=== PATIENT | male | born 1960 | race Caucasian/White ===

== ENCOUNTER 2020-05-28 06:43 | Observation (INO) ==
[2020-05-28] MEDS ORDERED: SODIUM CHLORIDE 0.9% 1000ML 1,000 ML IV SCH (07:00)
[2020-05-28] MEDS ORDERED: diphenhydrAMINE 50 MG/ML VIAL IV STA (07:00)
[2020-05-28] MEDS ORDERED: PROMETHAZINE 12.5 MG/50.5 ML BAG IV STA (07:00)
--- NOTE | 2020-05-28 07:11 | Emergency Department Note ---
Impression & Plan Internal carotid artery dissection, Headache, Abnormal CT scan, head ED Provider Note NAME: JOSEFINA CHEEMA AGE: 59 SEX: M : 1960 ARRIVES VIA: Walk-In INFORMANT: Patient, ED PROVIDER(S): Pramod Humphrey DO CHIEF COMPLAINT: Headache HPI: The patient is a 59-year-old male who presented to the emergency department for an evaluation of headache. The patient describes left-sided headache which he describes as a pressure. He states that this headache began gradually approximately 1 week ago. He was seen by his primary care physician for routine visit and when he mentioned the headache he was told to come to the emergency department if symptoms do not improve in usual fashion. He has had headaches before without lasting this long but he is also had a history of meningitis which he states felt similar. He started having some discomfort in the left side of his neck. He states that sometimes the pain is sharp and feels almost like a burning sensation on his scalp. There is no rash that he is noticed. He notices no dental pain. He does have slight photophobia but denies having any fever. He has no cough. He was tested for COVID-19 and states that this test was negative. The patient has been trying [id number] medications as well as his migraine medication without relief. The patient states that when he was admitted to our facility previously he did have radiographic studies as well as an evaluation by a neurologist. As far as he knows he is never had any history of aneurysm. ROS: See above HPI for pertinent positives & negatives. A total of 10 systems reviewed and were otherwise negative. PAST MEDICAL HISTORY: See Below PAST SURGICAL HISTORY: See Below FAMILY HISTORY: See Below SOCIAL HISTORY: See Below HOME MEDICATIONS: See Below ALLERGIES: See Below VITALS: See Below PHYSICAL EXAMINATION: GENERAL: Patient is awake alert in no acute distress patient is resting comfortably and showing no signs of anxiety EYES: The conjunctivae are clear. The pupils are round and reactive. EARS, NOSE, MOUTH AND THROAT: The nose is without any evidence of any deformity. Mucous membranes are moist. NECK: The neck is nontender and supple. RESPIRATORY: Normal respiratory effort is noted there is no evidence of wheezing rhonchi or rales CARDIOVASCULAR: Regular rate and rhythm noted there no murmurs rubs or gallops normal S1 normal S2. GASTROINTESTINAL: The abdomen is soft. Abdomen is nontender. MUSCULOSKELETAL/EXTREMITIES: There is no evidence of gross deformity full range of motion is noted in the hips and shoulders. SKIN: There is no obvious evidence of any rash. There are no petechiae, pallor or cyanosis noted. NEUROLOGIC: Patient is awake alert and oriented x3 strength is symmetric patellar reflexes are 2+ bilaterally MEDICAL DECISION MAKING: The patient is a 59-year-old male who presented to the emergency department for an evaluation of headache. The patient describes left-sided headache which began approximately 1 week ago. The headache was waxing and waning. He had no focal neurologic deficits. 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 Initially his symptoms were thought to be secondary to infection however he has no fever or true neck stiffness. Further radiographic studies were obtained. CT of the head with angiography was obtained. There was a questionable area of subarachnoid but this is felt to be not factual and likely artifact. 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 This was felt to be the cause of the patient's symptoms. He was treated with a migraine cocktail in the emergency department. He was reevaluated multiple times. His headache was mildly improved. I discussed the patient's condition with the [facility] hospitalist group as well as the [facility] neurologist. They have agreed to evaluate the patient for further management and disposition. The patient may need antiplatelet therapy but this might need to be held until the patient has repeat imaging of the brain to ensure that the abnormal area that was felt to be possible subarachnoid blood was in fact artifact and not true subarachnoid bleeding. I discussed this plan with the patient. He was agreeable. Triage Nursing notes reviewed. Prior medical records reviewed Vital Signs: reviewed and remarkable for elevated blood pressure. Differential diagnosis: Migraine headache, meningitis, sinusitis, CO exposure, ICH, SAH, infection, tumor, headache, sinus thrombosis, arterial dissection, as well as other pathologies. ER treatment provided: See below Diagnostics interpreted by me: ECG: none Cardiac Monitoring: An order was placed for continuous cardiac monitoring. The monitor shows a rate of 62 bpm with sinus rhythm. Laboratory studies: As stated above and show below. Imaging studies: See below Consultation(s): 0845: I discussed this case with Dr. Alvarado. She is agreeable to following the patient as an inpatient for further management. 0900: I discussed this case with Dr. Haskins who is on-call for the [facility] hospitalist group. Past Med/Surg History Medical History CAD (coronary artery disease) Hypercholesterolemia Hypertension Meningitis Social History Smoking Status: Never smoker Age Started Using Tobacco: 13; Age Quit Using Tobacco: 41; Years Smoked: 15; Cigarettes Per Day: 1; Number of Years Since Quit: 20; Second Hand Exposure: No; Feels Safe at Home: Yes Allergies Allergies Allergy/AdvReac Type Severity Reaction Status Date / Time No Known Drug Allergies Allergy Verified 05/28/20 07:17 Home Meds Home Medications Medication Instructions Recorded Confirmed atorvastatin 80 mg tablet 80 mg PO QPM 05/15/19 05/28/20 levothyroxine 150 mcg tablet 150 mcg PO PM 05/15/19 05/28/20 nitroglycerin 0.4 mg sublingual 0.4 mg SL Q5M PRN 05/15/19 05/28/20 tablet aspirin 81 mg PO PM 05/28/20 05/28/20 nizb-hep-[id number]-blkbor-om 3,6,9 5 1 cap PO PM 05/28/20 05/28/20 [[place] 3-6-9 Fatty Acids] multivitamin 1 tab PO PM 05/28/20 05/28/20 Results & Data (ED) Vital Signs Vital Signs - 24 hr 05/28/20 06:50 05/28/20 08:33 05/28/20 09:31 Temperature 36.7 C Temperature Source Oral Pulse Rate 71 Pulse Rate [Left Finger] 62 59 L Respiratory Rate 18 16 18 Respiratory Effort / Characteristics Non-Labored Spontaneous Respiratory Depth Normal Blood Pressure 159/93 H Blood Pressure [Left Arm] 134/92 146/94 H Blood Pressure Mean 115 Blood Pressure Mean [Left Arm] 106 111 Blood Pressure Position Sitting Pulse Oximetry 94 97 96 Oxygen Delivery Method Room Air Room Air Room Air Sepsis Recent Fever Within 48 Hours No Sepsis New/Unexplained Change in Mental Status No Sepsis Action Taken by Nursing No Action Required Home Medications Current Medication List: was personally reviewed by me Laboratory Data Attestation: I reviewed the patient's lab results. Result diagrams: 05/28/20 07:13 05/28/20 07:13 Lab Results 05/28/20 05/28/20 05/28/20 Range/Units 07:13 07:13 07:13 WBC 8.49 (4.8-10.8) K/uL RBC 5.02 (4.7-6.1) M/uL Hgb 15.4 (14.0-18.0) g/dL POC Hgb (14.0-18.0) g/dl Hct 44.2 (42-52) % POC Hct (42-52) % MCV 88.0 (80-100) fL MCH 30.7 (25-34) pg MCHC 34.8 (32-36) g/dL RDW Std Deviation 40.4 (36.4-46.3) fL RDW Coeff of John 12.6 (11.5-14.5) % Plt Count 254 (130-400) K/uL MPV 10.7 H (7.4-10.4) fL Immature Gran % (Auto) 0.1 % Neut % (Auto) 73.2 % Lymph % (Auto) 17.0 % Larimer % (Auto) 7.5 % Eos % (Auto) 2.0 % Baso % (Auto) 0.2 % Neut # (Auto) 6.21 (1.4-6.5) K/uL Lymph # (Auto) 1.44 (1.2-3.4) K/uL Larimer # (Auto) 0.64 H (0.11-0.59) K/uL Eos # (Auto) 0.17 (0-0.5) K/uL Baso # (Auto) 0.02 (0-0.2) K/uL Immature Gran # (Auto) 0.01 (0.00-0.02) K/uL ESR 3 (0-14) mm/hr POC Sodium (135-144) mmol/L Sodium 138 (136-145) mmol/L POC Potassium (3.3-5.0) mmol/L Potassium 3.7 (3.5-5.1) mmol/L POC Chloride (101-112) mmol/L Chloride 107 (98-107) mmol/L Carbon Dioxide 28 (21-32) mmol/L POC Total CO2 (24-31) mmol/L Anion Gap 3.0 (3-11) POC Anion Gap (16-25) mmol/L POC BUN (7-18) mg/dl BUN 23 H (7-18) mg/dl Creatinine 0.82 (0.6-1.4) mg/dl POC Creatinine (0.6-1.3) mg/dl Est Cr Clr Drug Dosing 116.8 ml/min Est GFR ( Amer) 113.0 Est GFR (Non-Af Amer) 97.5 BUN/Creatinine Ratio 28.6 H (10-20) Glucose 114 H (70-99) mg/dl POC Glucose (other) (70-99) mg/dl Calcium 8.7 (8.5-10.1) mg/dl POC Ioniz Calcium Angelica (1.12-1.32) mmol/l Total Bilirubin 0.5 (0.2-1) mg/dl AST 27 (15-37) U/L ALT 43 (12-78) U/L Alkaline Phosphatase 59 (45-117) U/L C-Reactive Protein < 0.29 (0-0.29) mg/dl Total Protein 7.0 (6.4-8.2) gm/dl Albumin 3.7 (3.4-5.0) gm/dl Globulin 3.3 (2.5-4.0) gm/dl Albumin/Globulin Ratio 1.1 (0.9-2) Procalcitonin (0-0.5) ng/ml 05/28/20 05/28/20 Range/Units 07:13 07:23 WBC (4.8-10.8) K/uL RBC (4.7-6.1) M/uL Hgb (14.0-18.0) g/dL POC Hgb 14.6 (14.0-18.0) g/dl Hct (42-52) % POC Hct 43 (42-52) % MCV (80-100) fL MCH (25-34) pg MCHC (32-36) g/dL RDW Std Deviation (36.4-46.3) fL RDW Coeff of John (11.5-14.5) % Plt Count (130-400) K/uL MPV (7.4-10.4) fL Immature Gran % (Auto) % Neut % (Auto) % Lymph % (Auto) % Larimer % (Auto) % Eos % (Auto) % Baso % (Auto) % Neut # (Auto) (1.4-6.5) K/uL Lymph # (Auto) (1.2-3.4) K/uL Larimer # (Auto) (0.11-0.59) K/uL Eos # (Auto) (0-0.5) K/uL Baso # (Auto) (0-0.2) K/uL Immature Gran # (Auto) (0.00-0.02) K/uL ESR (0-14) mm/hr POC Sodium 140 (135-144) mmol/L Sodium (136-145) mmol/L POC Potassium 3.7 (3.3-5.0) mmol/L Potassium (3.5-5.1) mmol/L POC Chloride 102 (101-112) mmol/L Chloride (98-107) mmol/L Carbon Dioxide (21-32) mmol/L POC Total CO2 28 (24-31) mmol/L Anion Gap (3-11) POC Anion Gap 15.0 L (16-25) mmol/L POC BUN 24 H (7-18) mg/dl BUN (7-18) mg/dl Creatinine (0.6-1.4) mg/dl POC Creatinine 0.7 (0.6-1.3) mg/dl Est Cr Clr Drug Dosing ml/min Est GFR ( Amer) Est GFR (Non-Af Amer) BUN/Creatinine Ratio (10-20) Glucose (70-99) mg/dl POC Glucose (other) 115 H (70-99) mg/dl Calcium (8.5-10.1) mg/dl POC Ioniz Calcium Angelica 1.18 (1.12-1.32) mmol/l Total Bilirubin (0.2-1) mg/dl AST (15-37) U/L ALT (12-78) U/L Alkaline Phosphatase (45-117) U/L C-Reactive Protein (0-0.29) mg/dl Total Protein (6.4-8.2) gm/dl Albumin (3.4-5.0) gm/dl Globulin (2.5-4.0) gm/dl Albumin/Globulin Ratio (0.9-2) Procalcitonin < 0.05 (0-0.5) ng/ml Administered Medications Discontinued Medications Diphenhydramine HCl (Diphenhydramine 50 Mg/Ml Vial) 25 mg IV NOW STA Stop: 05/28/20 07:01 Last Admin: 05/28/20 07:25 Dose: 25 mg Documented by: [id number] Fentanyl Citrate (Fentanyl Citrate 100 Mcg/2 Ml Vial) 50 mcg IV NOW STA Stop: 05/28/20 09:13 Last Admin: 05/28/20 09:32 Dose: 50 mcg Documented by: [id number] Sodium Chloride (Nss 1000ml) 1,000 mls @ 999 mls/hr IV .Q1H1M MARIBEL Stop: 05/28/20 08:00 Last Infusion: 05/28/20 08:20 Dose: 0 mls/hr Documented by: [id number] Admin: 05/28/20 07:25 Dose: 999 mls/hr Documented by: [id number] Promethazine HCl (Phenergan) 12.5 mg in 50.5 mls @ 202 mls/hr IV NOW STA Stop: 05/28/20 07:14 Last Infusion: 05/28/20 07:44 Dose: 0 mls/hr Documented by: [id number] Admin: 05/28/20 07:25 Dose: 202 mls/hr Documented by: [id number] Ioversol (Optiray 320 125ml) 120 ml IV ONCE ONE Stop: 05/28/20 07:34 Last Admin: 05/28/20 07:34 Dose: 120 ml Documented by: [id number] Imaging Data Radiologist's Impression: Patient: JOSEFINA CHEEMA Admit Date: 05/28/20 MR#: [id number] Address1: [address] [place] [address] Acct ID:[id number] Address2: Date: 1960 [facility] Zip: [place] [address] Age: 59 Location: ED Sex: M Room/Bed: Att Phy: Diagnosis: HEADACHE X 7 DAYS Eneida Phy: Tashi Gupta MD Service Date: 05/28/20 Fam Phy: Interpreting Phy: Shamar Garcia MD Admit Phy: Ordering Phy: Pramod Humphrey DO cc: ~ CT angio head w con CLINICAL HISTORY: left sided ELDRIDGE TECHNIQUE: CT angiography of the head was performed in a dynamic helical fashion during intravenous administration of 120 cc of Optiray 320. MIP imaging was p erformed. A dose lowering technique was utilized adhering to the principles of ALARA. CT DOSE: COMPARISON STUDY: MRI the brain dated 11/04/2015, noncontrast head CT dated 05/28/2020 FINDINGS: There are no major intracranial branch occlusions. There are atheromatous calcifications at the level the cavernous carotids without evidence of hemodynamically significant stenosis. The right vertebral artery is dominant. Left vertebral artery terminates in a PICA branch. The dural venous sinuses appear patent as visualized. There is fusiform dilatation of the distal left vertebral artery which measures 5.6 mm in maximal diameter. There is a 5 mm aneurysm of the left internal carotid artery versus focal dissection just proximal to the petrous canal. There is mild left internal carotid narrowing w ithin the petrous canal a finding which could be secondary to dissection or atherosclerotic narrowing. IMPRESSION: 1. 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 Mild narrowing of the left internal carotid artery within the petrous canal. 3. Mild focal fusiform dilatation of the distal right vertebral artery. ACT 112: Negative or not required by law. Electronically signed by: Shamar Garcia M.D. 05/28/2020 8:37 AM Dictated: 05/28/20819 Transcribed: 05/28/20819 Patient: JOSEFINA CHEEMA Admit Date: 05/28/20 MR#: [id number] Address1: [address] [place] [address] Acct ID:[id number] Address2: Date: 1960 [facility] Zip: [place] [address] Age: 59 Location: ED Sex: M Room/Bed: Att Phy: Diagnosis: HEADACHE X 7 DAYS Eneida Phy: Tashi Gupta MD Service Date: 05/28/20 [facility] Phy: Interpreting Phy: Cornell Mccollum MD Admit Phy: Ordering Phy: Pramod Humphrey DO cc: ~ ADDENDUM After further review there is questionable punctate hyperdense focus seen within the quadrigeminal cistern on image 12 and within the occipital horn of the right lateral ventricle on images 17 and 18. Possible small hyperdense focus within the third ventricle on image 15. This could be artifact. However, trace subarachnoid hemorrhage could also have a similar appearance. Therefore, 6 [address] follow-up recommended to ensure stability of these findings. This was discussed with Dr. Humphrey at 8:35 AM on 05/28/2020. Electronically signed by: Cornell Mccollum M.D. 05/28/2020 8:36 AM ADDENDUM END HEAD CT NONCONTRAST CT DOSE: 786.47 mGy.cm HISTORY: Headache. TECHNIQUE: Multiaxial CT images of the head were performed without the use of intravenous contrast. Automated exposure control was utilized for this study. A dose lowering technique was utilized adhering to the principles of ALARA. Comparison: Head CT 11/03/2015. Findings: The paranasal sinuses and mastoid air cells are clear. The calvarium and skull base are intact. The ventricles and sulci are within normal limits. There is no mass, hematoma, midline shift, or acute infarct. Impression: No acute intracranial abnormality. ACT 112: Negative or not required by law. Electronically signed by: Cornell Mccollum M.D. 05/28/2020 7:56 AM Dictated: 05/28/20 0752 Transcribed: 05/28/20 075 Patient: JOSEFINA CHEEMA Admit Date: 05/28/20 MR#: [id number] Address1: [address] [place] [address] Acct ID:[id number] Address2: Date: 1960 [facility] Zip: [place] [address] Age: 59 Location: ED Sex: M Room/Bed: Att Phy: Diagnosis: HEADACHE X 7 DAYS Eneida Phy: Tashi Gupta MD Service Date: 05/28/20 Fam Phy: Interpreting Phy: Cornell Mccollum MD Admit Phy: Ordering Phy: Pramod Humphrey DO cc: ~ XR chest 1V portable HISTORY: Headache. COMPARISON: Chest 11/03/2015. FINDINGS: The lungs are clear. The chronic silhouette remains mildly enlarged. No pleural effusions. No pneumothorax. IMPRESSION: Stable mild cardiomegaly. ACT 112: Negative or not required by law. Electronically signed by: Cornell Mccollum M.D. 05/28/2020 8:58 AM Dictated: 05/28/20821 Transcribed: 05/28/2034 Blood Pressure Blood Pressure Findings: Elevated blood pressure Blood Pressure Disposition: further management by hospitalist Discharge Plan Visit Data Chief Complaint: Headache Stated Complaint: HEADACHE X7DAYS ED Provider: Pramod Humphrey Discharge Problem: Internal carotid artery dissection, Headache, Abnormal CT scan, head Patient Disposition: Being Evaluated by Hospitalist Condition: Good Forms Stand Alone Forms: My [facility] [place] Information Prescriptions Prescriptions: No Action atorvastatin 80 mg tablet 80 mg PO QPM RF: 0 nitroglycerin 0.4 mg tablet, sublingual 0.4 mg SL Q5M PRN (Reason: Chest Pain) RF: 0 levothyroxine [Synthroid] 150 mcg tablet 150 mcg PO PM RF: 0 multivitamin Tablet 1 tab PO PM RF: 0 aspirin 81 mg Tablet,Delayed Release (Dr/Ec) 81 mg PO PM RF: 0 [place] 3-6-9 Fatty Acids 400-400-200 mg Capsule 1 cap PO PM RF: 0 Referrals Referrals: Tashi Gupta MD [Primary Care Provider] -
[2020-05-28] MEDS ORDERED: OPTIRAY 320 125ml IV ONE (07:33)
[2020-05-28 07:39] LABS: iSTAT Creatinine 0.7 mg/dl (0.6-1.3); iSTAT Hemoglobin 14.6 g/dl (14.0-18.0); iSTAT Ionized Calcium 1.18 mmol/l (1.12-1.32); iSTAT Potassium 3.7 mmol/L (3.3-5.0)
[2020-05-28 07:46] LABS: Alanine Aminotransferase 43 U/L (12-78); Albumin Level 3.7 gm/dl (3.4-5.0); Aspartate Aminotransferase 27 U/L (15-37); BUN Creatinine Ratio 28.6 (10-20); Blood Urea Nitrogen 23 mg/dl (7-18); Calcium 8.7 mg/dl (8.5-10.1); Carbon Dioxide 28 mmol/L (21-32); Chloride 107 mmol/L (98-107); Creatinine Clr Calc Pharmacy 116.8 ml/min; Est GFR (Non-African American) 97.5; Glucose 114 mg/dl (70-99); Potassium 3.7 mmol/L (3.5-5.1); Sodium 138 mmol/L (136-145)
[2020-05-28 07:50] LABS: Albumin Globulin Ratio 1.1 (0.9-2); Alkaline Phosphatase 59 U/L (45-117); Bilirubin,Total 0.5 mg/dl (0.2-1); C Reactive Protein < 0.29 mg/dl (0-0.29); Globulin 3.3 gm/dl (2.5-4.0)
--- NOTE | 2020-05-28 07:57 | CT Scan Report ---
HEAD CT NONCONTRAST CT DOSE: 786.47 mGy.cm HISTORY: Headache. TECHNIQUE: Multiaxial CT images of the head were performed without the use of intravenous contrast. A utomated exposure control was utilized for this study. A dose lowering technique was utilized adheri ng to the principles of ALARA. Comparison: Head CT 11/03/2015. Findings: The paranasal sinuses and mastoid air cells are clear. The calvarium and skull base are int act. The ventricles and sulci are within normal limits. There is no mass, hematoma, midline shift, or acute infarct. Impression: No acute intracranial abnormality. ACT 112: Negative or not required by law. Electronically signed by: Cornell Mccollum M.D. 05/28/2020 7:56 AM
--- NOTE | 2020-05-28 08:38 | CT Scan Report ---
CT angio head w con CLINICAL HISTORY: left sided ELDRIDGE TECHNIQUE: CT angiography of the head was performed in a dynamic helical fashion during intravenous a dministration of 120 cc of Optiray 320. MIP imaging was performed. A dose lowering technique was util ized adhering to the principles of ALARA. CT DOSE: COMPARISON STUDY: MRI the brain dated 11/04/2015, noncontrast head CT dated 05/28/2020 FINDINGS: There are no major intracranial branch occlusions. There are atheromatous calcifications at the level the cavernous carotids without evidence of hemodynamically significant stenosis. The right vertebral artery is dominant. Left vertebral artery terminates in a PICA branch. The dural venous si nuses appear patent as visualized. There is fusiform dilatation of the distal left vertebral artery w hich measures 5.6 mm in maximal diameter. There is a 5 mm aneurysm of the left internal carotid arter y versus focal dissection just proximal to the petrous canal. There is mild left internal carotid river rowing within the petrous canal a finding which could be secondary to dissection or atherosclerotic n arrowing. IMPRESSION: 1. 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 Mild narrowing of the left internal carotid artery within the petrous canal. 3. Mild focal fusiform dilatation of the distal right vertebral artery. ACT 112: Negative or not required by law. Electronically signed by: Shamar Garcia M.D. 05/28/2020 8:37 AM
[2020-05-28 08:51] LABS: Basophils # (auto) 0.02 K/uL (0-0.2); Basophils % (auto) 0.2 %; Eosinophils # (auto) 0.17 K/uL (0-0.5); Hematocrit (blood only) 44.2 % (42-52); Hemoglobin 15.4 g/dL (14.0-18.0); Immature Granulocytes # (auto) 0.01 K/uL (0.00-0.02); Immature Granulocytes % (auto) 0.1 %; Lymphocytes # (auto) 1.44 K/uL (1.2-3.4); Mean Corpuscular Hemoglobin 30.7 pg (25-34); Mean Corpuscular Hgb Conc 34.8 g/dL (32-36); Mean Platelet Volume 10.7 fL (7.4-10.4); Monocytes # (auto) 0.64 K/uL (0.11-0.59); Monocytes % (auto) 7.5 %; Neutrophils # (auto) 6.21 K/uL (1.4-6.5); Neutrophils % (auto) 73.2 %; Platelet Count 254 K/uL (130-400); RDW Coefficient of Variation 12.6 % (11.5-14.5); RDW Standard Deviation 40.4 fL (36.4-46.3); Red Blood Count 5.02 M/uL (4.7-6.1); White Blood Count 8.49 K/uL (4.8-10.8)
--- NOTE | 2020-05-28 09:00 | XRay Report ---
XR chest 1V portable HISTORY: Headache. COMPARISON: Chest 11/03/2015. FINDINGS: The lungs are clear. The chronic silhouette remains mildly enlarged. No pleural effusions. No pneumothorax. IMPRESSION: Stable mild cardiomegaly. ACT 112: Negative or not required by law. Electronically signed by: Cornell Mccollum M.D. 05/28/2020 8:58 AM
[2020-05-28] MEDS ORDERED: fentaNYL citrate 100 MCG/2 ML VIAL IV STA (09:12)
--- NOTE | 2020-05-28 09:38 | Neurology Consultation ---
Date of Consultation May 28, 2020 Assessment & Plan (1) Internal carotid artery dissection: Heriberto Bose is a 59 yo man w/ PMH of HTN, HLD, CAD s/p cardiac stents and h/o tobacco abuse who p/t [facility] with a one week h/o headache. # Left distal cervical ICA dissection: - will repeat CTH in 12 hours (7:30pm on 05/28/20) to follow up abnormalities noted on original CTH - recommend obtaining MRI brain with GRE sequence and contrast to r/o any small strokes from dissection, as well as MRA neck with fat sat sequence to better characterize dissection - if no clear ICH on repeat imaging, would do high risk heparin gtt overnight and continue home aspirin 81mg daily tomorrow AM - he should follow up in neurology clinic in 3 months with repeat CTA neck at that time to follow up on dissection # Headaches: long h/o migraines, though most recent headache is likely due to carotid dissection - IV tylenol/zofran q8h scheduled while admitted to help with headache pain. Could also add on valproic acid 500mg q8h IV while admitted - recommend tylenol prn at discharge for headaches Thank you for this interesting consult. Plan of care discussed with primary team and ED. Please call or text with questions. (2) Headache: (3) Hypertension: (4) Abnormal CT scan, head: History of Present Illness History of Present Illness Heriberto Bose is a 59 yo man w/ PMH of HTN, HLD, CAD s/p cardiac stents and h/o tobacco abuse who p/t [facility] with a one week h/o headache. In the ED, he noted that he has had a headache that started about one week ago and has gradually increased in severity. Vitals showed no fever, BP 159/93, HR 71, RR 18, satting 94% on room air. Labs notable for WBC 8.54, hemoglobin 15.4, platelets 254, BMP unremarkable, creatinine 0.82, Calcium within normal, LFTs within normal, ESR/CRP within normal, recent B12 893, vitamin D 25 OH mildly low at 26.9, TSH within normal, Lyme screen negative, anaplasmosis negative, Ehrlichosis negative, babeosis negative. Imaging independently reviewed. CTH shows hyperdensities in the right midbrain (linear) and third ventricle with possible IVH in the right occipital horn (more chronic appearing). CTA head show s dissection of the upper cervical segment of the left ICA extending into the petrous segment, left vertebral artery is hypoplastic and terminates in the left PICA, and no other LVO, high grade stenosis or aneurysm noted. On examination, he reports that he started to have a headache a/w left sided neck pain about 1.5 weeks ago. He also noted chills, myalgias and not feeling well. Reports having a negative COVID test. Does endorse lifting heavy objects at work but no chiropractic manipulations or roller coasters recently. Takes aspirin 81mg daily for CAD reasons. Allergies Allergy/AdvReac Type Severity Reaction Status Date / Time No Known Drug Allergies Allergy Verified 05/28/20 07:17 Home Medications Medication Instructions Recorded Confirmed Type atorvastatin 80 mg tablet 80 mg PO QPM 05/15/19 05/28/20 History levothyroxine 150 mcg tablet 150 mcg PO PM 05/15/19 05/28/20 History nitroglycerin 0.4 mg sublingual 0.4 mg SL Q5M PRN 05/15/19 05/28/20 History tablet aspirin 81 mg PO PM 05/28/20 05/28/20 History cnmm-tlf-dls-blkbor-om 3,6,9 5 1 cap PO PM 05/28/20 05/28/20 History [[place] 3-6-9 Fatty Acids] multivitamin 1 tab PO PM 05/28/20 05/28/20 History Patient History Medical History CAD (coronary artery disease) Hypercholesterolemia Hypertension Meningitis Surgical History (Updated 05/28/20 @ 11:31 by Deonna Mercedes MD) H/O hand surgery Stented coronary artery Social History Smoking Status: Never smoker Age Started Using Tobacco: 13; Age Quit Using Tobacco: 41; Years Smoked: 15; Cigarettes Per Day: 1; Number of Years Since Quit: 20; Second Hand Exposure: No; Feels Safe at Home: Yes Review of Systems Review of Systems: 14 point review of systems completed and negative except as in HPI. Exam (Neuro) Physical Exam: General Exam: GEN: NAD, sitting in chair. HEENT: No conjunctival injection, no rhinorrhea. CV: RRR, no peripheral edema PULM: Nonlabored respirations on room air. Neuro Exam: MS: Awake and Alert. Oriented to person, place, and date. Speech fluent and appropriate without dysarthria or paraphasic errors. Language intact including naming, comprehension, repetition. Cognition and memory grossly intact. Attention intact. No neglect. CN: Visual prabhakar full. No extinction to double simultaneous stimuli. No optic disc edema on fundoscopic exam. PERRLA OU. EOMI without nystagmus. Facial sensation intact to LT. Facial muscles full and symmetric. Hearing intact to conversation. Uvula midline with symmetric palatal elevation. Shoulder shrug nor mal. Tongue midline. MOTOR: Normal bulk and tone. No pronator drift. BUE strength 5/5 at deltoids, biceps, triceps, wrist flexors and extensors, and hand grasp bilaterally. BLE strength 5/5 at iliopsoas, hamstrings, quadriceps, tibialis anterior, and gastrocnemius bilaterally. REFLEXES: 2+ at biceps, triceps, brachioradialis, 2+ patella and Achilles bilaterally. Flexor plantar responses bilaterally. SENSORY: Intact to LT without extinction to double simultaneous stimuli. Vibration and pinprick intact throughout. COORDINATION: No dysmetria or ataxia on nnuczb-nn-nafq and jnxu-bl-ctub bilaterally. Normal Trina bilaterally. GAIT: deferred given physical status Results & Data ([facility]) Vital Signs (Past 12 Hours) Vital Signs Temp Pulse Pulse Resp BP BP Pulse Ox 05/28/20 08:33 62 16 134/92 97 05/28/20 06:50 36.7 C 71 18 159/93 H 94 PG Care Time/CCT Total # of Minutes Spent Total Time Spent with Patient: Total time spent is greater than 50% in coordination of care (as documented) at patient's floor/unit and/or counseling patient: Coding Level of Care Code 71579 Office/OBS Consult Lvl 5 Diagnoses Internal carotid artery dissection I77.71 Headache R51.[address] scan, head R93.0
--- NOTE | 2020-05-28 10:23 | History & Physical Report ---
Date of Service May 28, 2020 Assessment & Plan (1) Internal carotid artery dissection: 59 y/o M here with headache noted to have 5mm aneurysm/dissection in left ICA Left distal cervical ICA dissection/aneurysm with headache -Neuro consulted repeat CTH in 12 hours for concern of ICH on initial report of CT head MRI brain with GRE sequence and contrast to r/o any small strokes from dissection, as well as MRA neck with fat sat sequence to better characterize dissection If no clear ICH on repeat imaging, would do high risk heparin gtt overnight and continue home aspirin 81mg daily tomorrow AM To follow up with neuro clinic in 3mths and repeat CTA Headache -has h/o migraine -Per neuro Current headache likely due to carotid dissection Scheduled IV tylenol/zofran Hx of HTN -No on meds at home. -systolic on admission in 130s. If higher - will need to add prn med considering ICA dissection HLD/Hypothyroidism -continue home meds. SCD Full code Heart healthy diet (2) Headache: (3) Abnormal CT scan, head: (4) CAD (coronary artery disease): (5) Hypercholesterolemia: (6) Hypertension: History of Present Illness Chief Complaint: Headache Primary Care Provider: Tashi Gupta MD 59 y/o male came to ED for worsening headache lasting about 1 month. Pain in left side of head associated with some tingling/burning sensation. Pain felt like pressure. Also with associated neck pain. Pain started about a month ago off and on. He was evaluated by PCP and had test for lyme ds and COVID which were negative. He used over the counter medication and recently took his 's maxalt with no improvement in symptoms. In ED he does have sensitivity to light. Denies any fever, chills, vision change. He does report history of migraine when young. Allergies Allergy/AdvReac Type Severity Reaction Status Date / Time No Known Drug Allergies Allergy Verified 05/28/20 07:17 Home Medications Medication Instructions Recorded Confirmed Type atorvastatin 80 mg tablet 80 mg PO QPM 05/15/19 05/28/20 History levothyroxine 150 mcg tablet 150 mcg PO PM 05/15/19 05/28/20 History nitroglycerin 0.4 mg sublingual 0.4 mg SL Q5M PRN 05/15/19 05/28/20 History tablet aspirin 81 mg PO PM 05/28/20 05/28/20 History amxh-mey-gwj-blkbor-om 3,6,9 5 1 cap PO PM 05/28/20 05/28/20 History [[place] 3-6-9 Fatty Acids] multivitamin 1 tab PO PM 05/28/20 05/28/20 History Past Med/Surg History Medical History CAD (coronary artery disease) Hypercholesterolemia Hypertension Meningitis Surgical History (Updated 05/28/20 @ 11:31 by Deonna Mercedes MD) H/O hand surgery Stented coronary artery Family History (Updated 05/28/20 @ 15:22 by Angus Donnelly MD) Mother Pacemaker Father Coronary heart disease s/p stent Grandfather (Paternal) Myocardial infarction, Onset Age: 83 Grandfather (Maternal) Myocardial infarction, Onset Age: 69 Grandmother (Maternal) Breast cancer Grandmother (Paternal) Hypertension Social History Smoking Status: Never smoker Age Started Using Tobacco: 13; Age Quit Using Tobacco: 41; Years Smoked: 15; Cigarettes Per Day: 1; Number of Years Since Quit: 20; Second Hand Exposure: No; Hx Alcohol Use: Yes Alcohol type: beer Hx Substance Use: No Preferred Language: Uzbek Pharmacology Associate Required: No Beliefs That Will Affect Care: None Current Living Situation: Significant Other Feels Safe at Home: Yes Safety Concerns: Feels Safe At This Time Assistive Devices: None Review of Systems Review of Systems: All systems reviewed & are unremarkable except as noted in HPI & below Chronic joint aches pain. Has had hand surgeries in past. Physical Exam Constitutional: WD/WN, vitals as above Mild distress + Eyes: PERRL, conjunctivae normal, anicteric sclerae ENMT: external ear and nose normal, oropharynx normal Respiratory: normal respiratory effort, lungs clear to auscultation Cardiovascular: RRR, no murmur, no edema Gastrointestinal (Abdomen): normal bowel sounds, soft, nontender, no hepatosplenomegaly Musculoskeletal: no cyanosis or clubbing, extremities motor strength 5/5 Skin: no rashes, warm and dry Neurologic: patellar DTR's 2+ bilat, sensation intact Psychiatric: A+Ox3, euthymic affect Results & Data Results & Data ([facility]) Vital Signs (Past 12 Hours) Vital Signs Temp Pulse Pulse Resp BP BP Pulse Ox 05/28/20 09:31 59 L 18 146/94 H 96 05/28/20 08:33 62 16 134/92 97 05/28/20 06:50 36.7 C 71 18 159/93 H 94
[2020-05-28] MEDS ORDERED: ONDANSETRON INJ 2 MG/ML 2 ML VIAL IV PRN (13:33)
[2020-05-28] MEDS ORDERED: ACETAMINOPHEN 325 MG TAB PO PRN (13:33)
[2020-05-28] MEDS ORDERED: NITROGLYCERIN SL 0.4 MG/TAB TAB SL PRN (13:33)
[2020-05-28] MEDS ORDERED: ACETAMINOPHEN 1000 MG/100 ML IV IV SCH (14:00)
[2020-05-28] MEDS: ACETAMINOPHEN 325 MG TAB PO SCH ×2 (14:30→20:09)
[2020-05-28] MEDS: ONDANSETRON INJ 2 MG/ML 2 ML VIAL IV SCH ×2 (14:32→22:48)
[2020-05-28] MEDS ORDERED: GADOBUTROL 65ML VIAL IV ONE (16:45)
--- NOTE | 2020-05-28 16:54 | Magnetic Resonance Report ---
NECK CTA HISTORY: ICA dissection, headache TECHNIQUE: Multiaxial CT images of the neck were performed following the intravenous administration o f contrast to evaluate the major cervical vessels. Maximum intensity projection images were also obta ined. All measurements were calculated based on NASCET criteria. A dose lowering technique was utili zed adhering to the principles of ALARA. COMPARISON STUDY: None. FINDINGS: The aortic arch and proximal great vessels are widely patent. Hypoplastic left vertebral a rtery in comparison to the right. The bilateral vertebral arteries appear patent. Bilateral common ca rotid arteries are widely patent. No significant stenosis, occlusion, or dissection within the right internal carotid artery. Beaded appearance to the distal left cervical internal carotid artery rablaise g the possibility of fibromuscular dysplasia. There is a tortuous distal left internal carotid artery . There is also focal dissection involving the distal cervical internal carotid artery at the skull b ase which extends into the petrous segment resulting in mild narrowing. This is identified on the brain MRI. There is also a small saccular 5 mm aneurysm versus origin of dissection at the dist al left internal carotid artery IMPRESSION: 1. Confirmation of the focal dissection involving the distal left cervical internal carotid artery wh ich extends into the petrous segment. This results in mild narrowing of the internal carotid artery a t this location. 2. Slightly beaded appearance to the distal left cervical internal carotid artery raising and the pos sibility of fibromuscular dysplasia. 3. Small saccular 5 mm aneurysm versus origin of dissection at the distal left internal carotid arter y. ACT 112: Negative or not required by law. Electronically signed by: Cornell Mccollum M.D. 05/28/2020 4:53 PM
--- NOTE | 2020-05-28 17:00 | Magnetic Resonance Report ---
Brain MRI WITHOUT CONTRAST HISTORY: Headache. Internal carotid artery dissection. TECHNIQUE: Multiplanar multisequence MRI of the brain was performed without the use of contrast. COMPARISON STUDY: None. FINDINGS: No areas of restricted diffusion to suggest acute infarction. The midline structures are in tact. Increased T1 signal surrounding the distal cervical portion of the left internal carotid artery and extending into the petrous segment. This is consistent with the patient's known internal carotid artery dissection. This is best seen on axial image 20. This results in mild narrowing of the left i nternal carotid artery at this location. The ventricles and sulci are within normal limits. There is mild mucosal thickening within the ethmoid air cells. The mastoid air cells are clear. There are few scattered foci of T2 hyperintensity seen within the paratracheal white matter consistent with mild mi crovascular ischemic change. There is no mass, hematoma, midline shift. IMPRESSION: 1. Confirmation of the acute dissection within the distal left cervical internal carotid artery exten ding into the petrous segment. This results in mild narrowing of the artery at this location. 2. No acute infarct. 3. No acute intracranial hemorrhage. ACT 112: Negative or not required by law. Electronically signed by: Cornell Mccollum M.D. 05/28/2020 4:59 PM
[2020-05-28] MEDS ORDERED: hydrALAZINE HCL 20 MG/ML VIAL IV PRN (17:38)
[2020-05-28] MEDS ORDERED: amLODIPine BESYLATE 5 MG TAB PO ONE (17:38)
--- NOTE | 2020-05-28 19:44 | CT Scan Report ---
HEAD CT NONCONTRAST CT DOSE: 537.48 mGy.cm HISTORY: abnormal CT head TECHNIQUE: Multiaxial CT images of the head were performed without the use of intravenous contrast. A utomated exposure control was utilized for this study. A dose lowering technique was utilized adheri ng to the principles of ALARA. Comparison: None. Findings: The paranasal sinuses and mastoid air cells are clear. The calvarium and skull base are int act. The ventricles and sulci are within normal limits. There is no mass, hematoma, midline shift, or acute infarct. Impression: No acute intracranial abnormality. ACT 112: Negative or not required by law. Electronically signed by: Cornell Mccollum M.D. 05/28/2020 7:43 PM
[2020-05-28] MEDS ORDERED: Heparin IV Standard *NO* Bolus IV SCH (20:05)
[2020-05-28] MEDS ORDERED: HEPARIN 25000 UNIT/500 ML D5W IV ONE (20:13)
[2020-05-28] MEDS ORDERED: HEPARIN SODIUM/DEXTROSE 25,000 UNITS/500 ML BAG IV SCH (20:30)
[2020-05-28] MEDS ORDERED: LEVOTHYROXINE SODIUM 150 MCG TABLET PO SCH (21:00)
[2020-05-28] MEDS ORDERED: ATORVASTATIN 40 MG TAB PO SCH (21:00)
[2020-05-28 21:19] LABS: INR 1.1 (0.9-1.1); Partial Thromboplastin Ratio 0.9; Partial Thromboplastin Time 24.7 Seconds (21.0-31.0); Prothrombin Time 11.5 Seconds (9.0-12.0)
[2020-05-29] MEDS ORDERED: ACETAMINOPHEN 500 MG TAB PO ONE (00:53)
[2020-05-29] MEDS ORDERED: ACETAMINOPHEN 500 MG TAB ONE (00:56)
[2020-05-29 03:43] LABS: Basophils # (auto) 0.03 K/uL (0-0.2); Basophils % (auto) 0.4 %; Eosinophils # (auto) 0.34 K/uL (0-0.5); Eosinophils % (auto) 4.5 %; Hematocrit (blood only) 43.6 % (42-52); Hemoglobin 14.9 g/dL (14.0-18.0); Immature Granulocytes # (auto) 0.02 K/uL (0.00-0.02); Immature Granulocytes % (auto) 0.3 %; Lymphocytes % (auto) 26.7 %; Mean Corpuscular Hemoglobin 30.7 pg (25-34); Mean Corpuscular Hgb Conc 34.2 g/dL (32-36); Mean Corpuscular Volume 89.9 fL (80-100); Mean Platelet Volume 10.4 fL (7.4-10.4); Monocytes % (auto) 6.7 %; Neutrophils # (auto) 4.61 K/uL (1.4-6.5); Neutrophils % (auto) 61.4 %; Platelet Count 237 K/uL (130-400); RDW Coefficient of Variation 12.7 % (11.5-14.5); RDW Standard Deviation 41.8 fL (36.4-46.3); Red Blood Count 4.85 M/uL (4.7-6.1)
[2020-05-29] MEDS: ACETAMINOPHEN 325 MG TAB PO SCH ×2 (03:45→07:52)
[2020-05-29 04:01] LABS: BUN Creatinine Ratio 17.4 (10-20); Calcium 8.6 mg/dl (8.5-10.1); Est GFR (African American) 91.3; Est GFR (Non-African American) 78.8; Magnesium 2.2 mg/dl (1.8-2.4); Phosphorus 2.4 mg/dl (2.5-4.9)
[2020-05-29 04:03] LABS: Partial Thromboplastin Ratio 2.2
[2020-05-29] MEDS ORDERED: MoRPHine SULFATE 2 MG/ML CARP IV STA (04:03)
[2020-05-29 04:10] LABS: Partial Thromboplastin Time 62.1 Seconds (21.0-31.0)
[2020-05-29] MEDS: ONDANSETRON INJ 2 MG/ML 2 ML VIAL IV SCH (05:35)
--- NOTE | 2020-05-29 07:14 | Discharge Summary ---
Date of Service May 29, 2020 Admission HPI Per Admitting Provider 59 y/o male came to ED for worsening headache lasting about 1 month. Pain in left side of head associated with some tingling/burning sensation. Pain felt like pressure. Also with associated neck pain. Pain started about a month ago off and on. He was evaluated by PCP and had test for lyme ds and COVID which were negative. He used over the counter medication and recently took his 's maxalt with no improvement in symptoms. In ED he does have sensitivity to light. Denies any fever, chills, vision change. He does report history of migraine when young. Admission Exam Per Admitting Provider Constitutional: WD/WN, vitals as above Mild distress + Eyes: PERRL, conjunctivae normal, anicteric sclerae ENMT: external ear and nose normal, oropharynx normal Respiratory: normal respiratory effort, lungs clear to auscultation Cardiovascular: RRR, no murmur, no edema Gastrointestinal (Abdomen): normal bowel sounds, soft, nontender, no hepatosplenomegaly Musculoskeletal: no cyanosis or clubbing, extremities motor strength 5/5 Skin: no rashes, warm and dry Neurologic: patellar DTR's 2+ bilat, sensation intact Psychiatric: A+Ox3, euthymic affect Principal Diagnosis Left Internal Carotid Artery Dissection Discharge Exam Constitutional WD/WN, vitals as above Respiratory normal respiratory effort, lungs clear to auscultation Cardiovascular RRR, no murmur, no edema Gastrointestinal (Abdomen) normal bowel sounds, soft, nontender, no hepatosplenomegaly Skin no rashes, warm and dry Psychiatric A+Ox3, euthymic affect Discharge Data Allergies Allergy/AdvReac Type Severity Reaction Status Date / Time No Known Drug Allergies Allergy Verified 05/28/20 07:17 Consultations 05/28/20 09:12 ED Decision to Admit Stat 05/28/20 09:35 Consult Neurology Stat Ordered Studies 05/28/20 07:00 CT head/brain wo con Stat 05/28/20 07:07 CT angio head w con Stat 05/28/20 13:33 MR angio neck wo/w con Stat MR brain wo con Stat 05/28/20 19:30 CT head/brain wo con Stat Hospital Course (1) Internal carotid artery dissection: Heriberto Bose is a 59 y/o male with h/o CAD s/p cardiac stents, tobacco abuse, HTN and HLD who was admitted to [facility] on 05/28/2020 for worsening headache secondary to Left ICA dissection. Left distal cervical ICA dissection/aneurysm - CTA Head showed 5mm aneurysm vs dissection of left ICA as well as mild narrowing of left distal ICA - confirmed via neck MRA - No sign of hemorrhage or infarction on CT head/brain MRI - repeat head CT done which confirmed no ICH - started on heparin gtt overnight and transitioned to home aspirin 81mg daily on 05/29 - follow up with Neuro clinic in 3 months and repeat CTA to monitor dissection/aneurysm Headache - has h/o migraine but current headache likely 2/2 dissection - started on Tylenol/Zofran, in addition to Valproic acid 500mg IV x1, while hospitalized --> headache improved - PRN Tylenol after discharge - f/u with Neuro as mentioned above Elevated blood pressure - no home medications but maintained BP <140/90 in the hospital - monitor BP at home with goal of <140/90 - f/u with PCP HLD/Hypothyroidism -continue home meds (2) Headache: (3) Abnormal CT scan, head: (4) CAD (coronary artery disease): (5) Hypercholesterolemia: (6) Hypertension: Total Time Total Time Spent Total Time Spent (In Minutes): 30 minutes Total Time Includes: Examination of the Patient, Discharge Planning and Medication Reconciliation Discharge Plan Discharge Items Patient Disposition: Home - Self-Care Reason For Visit: ICA DISSECTION Discharge Diagnosis: Internal Carotid Artery Dissection Condition on Discharge: Good Activity: Per Instructions section Non-emergency contact: Primary Care Provider and Neurologist Call non-emergency contact if: you have any medication questions, your symptoms worsen and your pain is not controlled Follow-up/Referrals: Tashi Gupta MD [Primary Care Provider] - Diet: Heart Healthy Addtl Attending Provider Instructions: You were admitted to [facility] on 05/28/2020 for worsening left-sided headaches due to a left internal carotid artery dissection. The dissection was confirmed via imaging of your neck, and imaging of your head did not show signs of bleeding or ischemic stroke due to blood clots, which are both possible complications of an ICA dissection. You were started on an IV blood thinner called Heparin in order to avoid the possibility of developing a blood clot in the brain. You were also given Tylenol, Morphine and Valproic Acid for your headache. Your headache improved with these medications and you did well on the IV blood thinner. You will be discharged in improved, stable condition on 05/29/2020. You should continue taking Tylenol as needed for your headaches, and you should continue to take all of your medications. Please contact your PCP and/or Neurologist if your headache does not improve with Tylenol (maximum of 3 grams per day), or if your headache worsens. You should also continue to take your daily Aspirin, starting tomorrow morning (you took one in the hospital this morning), as well as your other regular home medications. Lastly, you should try to monitor your blood pressures at home and should let your PCP and/or Neurologist know if it is regularly higher than 140/90. You will follow up with your Neurologist in 3 months and will have a repeat CTA scan of your neck to check on the ICA dissection. Pending Studies at Discharge: No Stand-Alone Forms: My [facility], Smoking Cessation Medications and DC Order Prescriptions: Continued atorvastatin 80 mg tablet 80 mg PO QPM RF: 0 nitroglycerin 0.4 mg tablet, sublingual 0.4 mg SL Q5M PRN (Reason: Chest Pain) RF: 0 levothyroxine [Synthroid] 150 mcg tablet 150 mcg PO PM RF: 0 multivitamin Tablet 1 tab PO PM RF: 0 aspirin 81 mg Tablet,Delayed Release (Dr/Ec) 81 mg PO PM RF: 0 [place] 3-6-9 Fatty Acids 400-400-200 mg Capsule 1 cap PO PM RF: 0 Discharge Orders: Discharge Order (Routine); Ordered 05/29/20 Ordered By: Erik More Admission Data Admit Date/Time: 05/28/20 10:22 Attending Provider: Deonna Mercedes Admit Provider: Deonna Mercedes Primary Care Provider: Tashi Gupta Other Providers: Power Haskins Christina R. ; Erik More Other Interventions: Discharge Summary Assessment (RN) Last Done: 05/29/20 12:47 Supervising Physician Co-Signing Physician Notes Resident Physician Supervision Note: I independently interviewed and examined the patient and verified the salmeron history and physical, reviewed labs and image studies, discussed the case with the resident Dr. More and agree with the findings and care plan. Resident Activity Tracking Resident Involvement: Resident Care Provided Care Provided: Adult [facility]
[2020-05-29] MEDS ORDERED: ASPIRIN 81 MG ECTAB PO SCH (09:00)
[2020-05-29] MEDS ORDERED: VALPROATE SOD 500 MG in DEXTROSE 5% 50 ML IV ONE (10:00)
--- NOTE | 2020-05-29 10:05 | Neurology Progress Note ---
Date of Service May 29, 2020 Assessment & Plan (1) Internal carotid artery dissection: Heriberto Bose is a 59 yo man w/ PMH of HTN, HLD, CAD s/p cardiac stents and h/o tobacco abuse who p/t [facility] with a one week h/o headache. # Left distal cervical ICA dissection: confirmed on MRA neck with fat sat - resume aspirin 81mg daily - he should follow up in neurology clinic in 3 months with repeat CTA neck at that time to follow up on dissection - monitor BP (goal <140/90) # Headaches: long h/o migraines, though most recent headache is likely due to carotid dissection - IV tylenol/zofran q8h scheduled while admitted to help with headache pain. Could also add on valproic acid 500mg q8h IV while admitted - recommend tylenol prn at discharge for headaches Thank you for this interesting consult. Plan of care discussed with primary team and ED. Please call or text with questions. He is stable for discharge from a neurological standpoint. (2) Headache: (3) Hypertension: (4) Abnormal CT scan, head: Admission and Anticipated Discharge Date Admission Date: May 28, 2020 Subjective NAEs overnight. Had heparin high risk gtt, now transitioning back to PO aspirin. Discussed results of testing with him. MRA neck confirmed left ICA dissection. MRI brain showed no acute infarct or hemorrhage, mild SVID. Repeat CTH stable, no further hyperdensity c/f SAH or ICH noted. Review of Systems Review of Systems: 14 point review of systems completed and negative except as in HPI. Results & Data ([facility]) Vital Signs (Past 12 Hours) Vital Signs Temp Pulse Pulse Pulse Resp BP Pulse Ox 05/29/20 08:07 36.5 C 59 L 19 136/82 97 05/29/20 07:45 55 L 05/29/20 02:48 36.4 C L 52 L 17 135/72 98 05/29/20 00:47 58 L 125/58 L 05/28/20 23:55 70 05/28/20 23:28 36.7 C 58 L 18 133/80 97 Exam (Neuro) Physical Exam: General Exam: GEN: NAD, sitting in chair. HEENT: No conjunctival injection, no rhinorrhea. CV: RRR, no peripheral edema PULM: Nonlabored respirations on room air. Neuro Exam: MS: Awake and Alert. Oriented to person, place, and date. Speech fluent and appropriate without dysarthria or paraphasic errors. Language intact including naming, comprehension, repetition. Cognition and memory grossly intact. Attention intact. No neglect. CN: Visual prabhakra full. No extinction to double simultaneous stimuli. No optic disc edema on fundoscopic exam. PERRLA OU. EOMI without nystagmus. Facial sensation intact to LT. Facial muscles full and symmetric. Hearing intact to conversation. Uvula midline with symmetric palatal elevation. Shoulder shrug normal. Tongue midline. MOTOR: Normal bulk and tone. No pronator drift. BUE strength 5/5 at deltoids, biceps, triceps, wrist flexors and extensors, and hand grasp bilaterally. BLE strength 5/5 at iliopsoas, hamstrings, quadriceps, tibialis anterior, and gastrocnemius bilaterally. REFLEXES: 2+ at biceps, triceps, brachioradialis, 2+ patella and Achilles bilaterally. Flexor plantar responses bilaterally. SENSORY: Intact to LT without extinction to double simultaneous stimuli. Vibration and pinprick intact throughout. COORDINATION: No dysmetria or ataxia on [id number] and [id number] bilaterally. Normal Trina bilaterally. GAIT: deferred given physical status PG Care Time/CCT Total # of Minutes Spent Total Time Spent with Patient: Total time spent is greater than 50% in coordination of care (as documented) at patient's floor/unit and/or counseling patient: Coding Level of Care Code 34130 Subseq Hosp Care Lvl 3 Diagnoses Internal carotid artery dissection I77.71 Headache R51.9 Headache chronicity pattern: acute headache Headache type: unspecified Intractability: not intractable Hypertension I10 Abnormal CT scan, head R93.0 (1) Headache Headache chronicity pattern: acute headache Headache type: unspecified Intractability: not intractable Qualified Code(s): R51.9 - Headache, unspecified
== END 2020-05-29 13:20 | disposition home or self-care (01) ==
LOC: ED 06:43 → 2S 06:43
DX: R03.0 Elevated blood-pressure reading, without diagnosis of hypertension; Z79.890 Hormone replacement therapy; Z79.82 Long term (current) use of aspirin; I77.71 Dissection of carotid artery; E78.5 Hyperlipidemia, unspecified; I10 Essential (primary) hypertension; E78.00 Pure hypercholesterolemia, unspecified; F17.200 Nicotine dependence, unspecified, uncomplicated; E03.9 Hypothyroidism, unspecified; Z95.5 Presence of coronary angioplasty implant and graft; I25.10 Atherosclerotic heart disease of native coronary artery without angina pectoris